=== PATIENT | male | born 1975 | race Asian ===

== ENCOUNTER 2016-12-02 05:33 | Emergency (ER) | payer OTHER ==
[~2016-12-02] VITALS: Ht 180.3 cm; Wt 85.7 kg
[2016-12-02 07:20] VITALS: BP 124/77
== END 2016-12-02 09:29 | disposition left against medical advice (07) ==
LOC: ER 05:37
DX: S29.011A Strain of muscle and tendon of front wall of thorax, initial encounter (principal); X50.9XXA Other and unspecified overexertion or strenuous movements or postures, initial encounter; Z53.29 Procedure and treatment not carried out because of patient's decision for other reasons; Y93.89 Activity, other specified; Y99.0 Civilian activity done for income or pay; Y92.69 Other specified industrial and construction area as the place of occurrence of the external cause
CPT/HCPCS: 71111; 72128

== ENCOUNTER 2016-12-02 09:35 | Emergency (ER) | payer OTHER ==
[~2016-12-02] VITALS: Ht 180.3 cm; Wt 81.6 kg
[2016-12-02 10:52] VITALS: BP 143/87
[2016-12-02] MEDS ORDERED: CYCLOBENZAPRINE HCL 10 MG TAB PO ONE (11:30)
[2016-12-02] MEDS ORDERED: HYDROcodone-ACET 5/325MG TAB PO ONE (11:30)
== END 2016-12-02 12:39 | disposition home or self-care (01) ==
LOC: ER 09:35
DX: S29.012A Strain of muscle and tendon of back wall of thorax, initial encounter (principal); E78.5 Hyperlipidemia, unspecified; I10 Essential (primary) hypertension; X50.9XXA Other and unspecified overexertion or strenuous movements or postures, initial encounter; Y93.89 Activity, other specified; Y99.8 Other external cause status; Y92.89 Other specified places as the place of occurrence of the external cause